=== PATIENT | male | born 1945 | race Caucasian/White ===

== ENCOUNTER 2019-04-23 15:40 | Emergency (ER) | payer MEDICARE ==
[~2019-04-23] VITALS: Ht 167.6 cm; Wt 85.0 kg
[2019-04-23 15:52] VITALS: BP 155/90
[2019-04-23] MEDS ORDERED: bacitracin 15gm ointment TP ONE (16:25)
[2019-04-23] MEDS ORDERED: ketorolac trometh inj. 60 MG/2 ML VIAL IM ONE (16:25)
[2019-04-23] MEDS ORDERED: TETanus/Pertussis (Acell)/Diphther VAC/PF (Tdap-Adult) 0.5ml syringe IMVAC ONE (16:25)
== END 2019-04-23 17:07 | disposition home or self-care (01) ==
LOC: ER 15:41
DX: S61.211A Laceration without foreign body of left index finger without damage to nail, initial encounter (principal); S61.213A Laceration without foreign body of left middle finger without damage to nail, initial encounter; W23.0XXA Caught, crushed, jammed, or pinched between moving objects, initial encounter; Y93.89 Activity, other specified; Y92.89 Other specified places as the place of occurrence of the external cause; Y99.8 Other external cause status
CPT/HCPCS: 90471; 90715; 96372; 99283; J1885

== ENCOUNTER 2022-01-30 11:49 | Emergency (ER) | payer BC, MEDICARE ==
[~2022-01-30] VITALS: Ht 174 cm; Wt 82.1 kg
[2022-01-30 12:08] VITALS: BP 175/83
== END 2022-01-30 14:50 | disposition home or self-care (01) ==
LOC: ER 11:50
DX: M20.021 Boutonniere deformity of right finger(s) (principal)
CPT/HCPCS: 29130; 73140; 99284